=== PATIENT | male | born 1965 | race Hispanic/Latino ===

== ENCOUNTER 2018-03-26 07:13 | Emergency (ER) | payer SELFPAY ==
[~2018-03-26] VITALS: Ht 180.3 cm; Wt 112.9 kg
[2018-03-26 07:15] VITALS: BP 136/83
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
--- NOTE | 2018-03-26 08:39 | CT SCAN REPORT ---
EXAMINATION: CT CERVICAL SPINE WITHOUT CONTRAST CLINICAL INFORMATION: Pain. COMPARISON: None. TECHNIQUE: Contiguous helical images of the cervical spine were obtained without IV contrast. Multiplanar reconstructions were performed. FINDINGS: The cervical vertebra are in normal alignment. There is mild anterior osteophyte formation throughout the cervical spine. Disc heights and vertebral heights are well-preserved. There are no fractures. There is no prevertebral soft tissue swelling. There is no cervical lymphadenopathy. The visualized base of the brain is unremarkable. The visualized lung apices are clear. IMPRESSION: Mild degenerative change throughout the cervical spine without evidence of acute injury.
--- NOTE | 2018-03-26 08:41 | RADIOLOGY REPORT ---
EXAMINATION: XR ELBOW, LEFT CLINICAL INFORMATION: Evaluate for fracture. Pain. COMPARISON: None TECHNIQUE: AP, lateral, and oblique views of the left elbow. FINDINGS: Normal bony mineralization. No evidence of acute fracture or dislocation. Degenerative changes noted in the ulnohumeral joint. Subtle osteophyte formations noted along the medial and lateral epicondyles as well as along the dorsal aspects of the distal humerus. Linear ossific/calcific density noted along the volar aspect distal humerus on lateral projection may also represent osteophyte formation or less likely age indeterminate cortical avulsion. Larger osteophyte formation noted along the dorsal aspect of the olecranon process. No gross evidence of elevation of the fat pad identified. IMPRESSION: 1. No definite evidence of acute fracture identified. Linear ossific density along the volar aspect distal humerus may represent osteophyte formation or age indeterminate cortical avulsion. 2. Subtle osteophyte formations suspected along the medial, lateral and dorsal aspects of the distal humerus. Larger osteophyte olecranon process. 3. No gross evidence of joint effusion.
[2018-03-26] MEDS ORDERED: METFORMIN HCL1000 M1 PO (08:56)
[2018-03-26] MEDS ORDERED: LOSARTAN POTAS100 M1 PO (08:57)
[2018-03-26] MEDS ORDERED: CRESTOR10 M1 PO (08:57)
[2018-03-26] MEDS ORDERED: CHLORTHALIDONE25 M1 PO (08:57)
== END 2018-03-26 10:38 ==
LOC: ERH 07:13
DX: S16.1XXA Strain of muscle, fascia and tendon at neck level, initial encounter (principal); M25.522 Pain in left elbow; V43.52XA Car driver injured in collision with other type car in traffic accident, initial encounter
CPT/HCPCS: 73080-LT